=== PATIENT | female | born 1935 | race Caucasian/White ===

== ENCOUNTER 2018-01-25 01:22 | Inpatient (IN) | payer OTHER, MEDICARE ==
[~2018-01-25] VITALS: Ht 149.9 cm; Wt 68.9 kg
[~2018-01-25 01:22] MED LIST: AMLODIPINE BESY10 M1 PO; ATORVASTATIN CA40 M1 PO; CYANOCOBAL1000 MCG/2 IM; ESTRACE42.5 GM VG; HYDROCHLOROTH12.5 M2 PO; LABETALOL HCL200 M1 PO; LEVOTHYROXINE125 MCG PO; LYRICA75 M1 PO; MYRBETRIQ50 M1 PO; PANTOPRAZOLE SO20 M1 PO; PLAVIX75 M1 PO
--- NOTE | 2018-01-25 12:28 | RADIOLOGY REPORT ---
EXAMINATION: XR HIP, RIGHT CLINICAL INFORMATION: Status post total right hip arthroplasty COMPARISON: None TECHNIQUE: Two views of the right hip. FINDINGS: Prosthetic components of the right total hip arthroplasty are appropriately aligned. No periprosthetic fracture. Gas from recent surgery is present in the surrounding soft tissues. IMPRESSION: Normal postoperative appearance of the right total hip prosthesis.
--- NOTE | 2018-01-25 13:18 | PN- Orthopedic ---
Subjective Subjective: POC Pt recovering in PACU, minimal discomfort in right hip. Denies paresthesias. Deneis CP/SOB/COREY. Objective Vital Signs and I&Os VSS, afebrile Physical Exam: gen- NAD resp- clear cardiac- RRR ext- right thigh is soft, no erythema. dressing clean and dry. no calf tenderness. 2+DP pulse. distal sensory and motor function intact Current Medications: Current Medications Sig/Man Start time Last Medication Dose Route Stop Time Status Admin Acetaminophen 0 .STK-MED ONE 01/25 837 DC PO Acetaminophen 975 MG ONCE 01/25 0000 NR PO 01/25 235 Cefazolin Sodium 2,000 MG ONCE 01/25 0000 NR IV 01/25 235 Midazolam HCl 0 .STK-MED ONE 01/25 0914 DC .ROUTE Oxycodone HCl 0 .STK-MED ONE 01/25 837 DC PO Oxycodone HCl 10 MG ONCE 01/25 0000 NR PO 01/25 2359 Tranexamic Acid 0 .STK-MED ONE 01/25 0914 DC IV Assessment/Plan Assessment/Plan 82yo F with hx of htn, hld, cad, depression and gerd now here SP R ZAKIA POD0, stable in PACU pain management, try to limit narcotics dvt ppx- asa 81mg BID for three weeks regular home meds- Restart PLavix in 1 week PT- WBAT w RW reg diet IVF overngiht FU AM labs DC planning- possibly home tomorrow pending PT eval Core Measures Venous Thromboembolism VTE Risk Factors Surgery No Mechanical VTE Prophylaxis d/t N/A MechProphylax Ordered No VTE Pharm Prophylaxis d/t NA PharmProphylax ordered
--- NOTE | 2018-01-25 13:19 | Admission Core Measures ---
Acute Coronary Syndrome (CM) ACS Core Measures Acute Coronary Syndrome Diagnosis No Congestive Heart Failure (NEW) CHF Core Measures Congestive Heart Failure Diagnosis No Cerebrovascular Accident CVA Core Measures CVA/TIA Diagnosis No Venous Thromboembolism VTE Core Monet (View Protocol) VTE Risk Factors Surgery No Mechanical VTE Prophylaxis d/t N/A MechProphylax Ordered No VTE Pharm Prophylaxis d/t NA PharmProphylax ordered Problem List As ranked by this Provider includes Assessment & Plan 1. Unilateral primary osteoarthritis, right hip HOME MEDS Home Med List Amlodipine Besylate 10 MG TABLET 1 TAB PO DAILY HTN (Reported) Atorvastatin Calcium 40 MG TABLET 1 TAB PO DAILY CHOLESTEROL (Reported) Clopidogrel Bisulfate (Plavix) 75 MG TABLET 1 TAB PO DAILY CAROTID ARTERY STENOSIS (Reported) Cyanocobalamin (Vitamin B-12) (Cyanocobalamin Injection) 1,000 MCG/ML VIAL 1 ML IM Q30D SUPPLEMENT (Reported) Estradiol (Estrace) 0.01 % CREAM.APPL 1 GM VG 2XW HRT (Reported) Hydrochlorothiazide 12.5 MG TABLET 1 TAB PO DAILY HTN (Reported) Labetalol HCl 200 MG TABLET 1 TAB PO BID CARDIAC (Reported) Levothyroxine Sodium 125 MCG TABLET 1 TAB PO DAILY REPLACEMENT (Reported) Mirabegron (Myrbetriq) 50 MG TAB.ER.24H 1 TAB PO DAILY OAB (Reported) Pantoprazole Sodium 20 MG TABLET.DR 1 TAB PO DAILY GERD (Reported) Pregabalin (Lyrica) 75 MG CAPSULE 1 CAP PO BID DEPRESSION (Reported)
[2018-01-25] MEDS ORDERED: ASPIRIN EC81 M1 PO (13:24)
[2018-01-25] MEDS ORDERED: MIRALAX17 G1 PO (13:24)
[2018-01-25] MEDS ORDERED: DILAUDID2 M1 PO (13:24)
[2018-01-25] MEDS ORDERED: COLACE100 M1 PO (13:24)
--- NOTE | 2018-01-25 13:27 | Patient Discharge Instructions ---
Discharge Instructions General Discharge Information You were seen/treated for: Right hip pain related to unilateral primary osteoarthritis You had these procedures: Right total hip replacement Watch for these problems: Increasing pain despite the use of pain medication Increasing redness, warmth or swelling Drainage of any type from incision Inability to bear weight on operative leg Persistent nausea and vomiting Fever greater than 101.5 degrees Do not soak the wound: Yes No bath, but you may shower: Yes Other wound care: Please keep wound clean and dry. No ointments or lotions of any type on or near incision at any time. No exceptions. Your dressing will be changed by your nurse on the second day after your surgery. Daily dry dressing changes are recommended each day thereafter. Do not soak your wound in a bath or pool at any time until otherwise indicated by your surgeon. You may shower, please dry wound immediately after shower with a clean towel. Special Instructions: Aspirin: You are taking this medication to help prevent blood clot formation. Please take with food to protect your stomach lining. Please take as directed. Please take for three weeks Plavix: Dr. Vanegas would like you to discontinue plavix for 7 days, then resume your normal dosage. Constipation: Pain medication can cause constipation. Your surgeon has recommended that you take Colace and miralax each day. You may discontinue this medication if you develop loose stool or diarrhea. If you wish to continue this medication, it is available over the counter. If you are unable to move your bowels after several days, if you are unable to pass gas and are developing bloating, nausea, or vomiting as a result, please contact your doctor. Diet Continue normal diet: Yes Recommended Diet: Regular Activity Full Activity/No Limits: No Activity Self Limited: Yes Pounds, do NOT lift more than: 10 Acute Coronary Syndrome Inclusion Criteria At DC or during hospital stay patient has or had the following: ACS DIAGNOSIS No Discharge Core Measures Meds if any: Prescribed or Continued at Discharge Meds if any: NOT Prescribed or Continued at Discharge Congestive Heart Failure Inclusion Criteria At DC or during hospital stay patient has or had the following: CHF DIAGNOSIS No Discharge Core Measures Meds if any: Prescribed or Continued at Discharge Meds if any: NOT Prescribed or Continued at Discharge Cerebrovascular accident Inclusion Criteria At DC or during hospital stay patient has or had the following: CVA/TIA Diagnosis No Discharge Core Measures Meds if any: Prescribed or Continued at Discharge Meds if any: NOT Prescribed or Continued at Discharge Venous thromboembolism Inclusion Criteria VTE Diagnosis No VTE Type NONE VTE Confirmed by (Test) NONE Discharge Core Measures - Per Current guidelines, there needs to be overlap - treatment for the first 5 days of Warfarin therapy. - If discharged on Warfarin prior to 5 days of - overlap therapy, the patient will need to be - assessed for post discharge needs including - *Post discharge parental anticoagulation - *Warfarin and/or parental anticoagulation education - *Follow up date to check INR post discharge At least 5 days overlap therapy as Inpatient No Meds if any: Prescribed or Continued at Discharge Note: Overlap Therapy is Warfarin and Anticoagulant Meds if any: NOT Prescribed or Continued at Discharge
--- NOTE | 2018-01-25 13:30 | Surgical Discharge Summary ---
Visit Information Visit Dates Admission Date: 01/25/18 History of Present Illness Chief Complaint: Right hip pain related to unilateral primary osteoarthritis Medical History Isolation History: Standard Surgical History Pertinent Surgical History: non-contributory Review of Systems: See H&P Hospital Course Course Attending Physician: Newton Vanegas MD Primary Care Physician: Charley Grossman MD Hospital Course: Patient was admitted to the hospital for an elective total joint replacement. The procedure was tolerated well and patient was transferred to a general surgical floor. Diet was advanced and tolerated. The patient was evaluated and treated by physical therapy. At the time of hospital discharge, the vital signs were stable, neurovascular status was intact, and pain was controlled with the use of oral pain medications. Allergies: Coded Allergies: ALAYNA Inhibitors (UNKNOWN 01/22/18) PER PRE-OP ORDER SHEET FROM [facility]. - 01/22/18 STATINS (UNKNOWN 01/22/18) PER PRE-OP ORDER SHEET FROM [facility]. - 01/22/18 aspirin (UNKNOWN 01/22/18) PER PRE-OP ORDER SHEET FROM [facility]. - 01/22/18 Disposition Summary Disposition Principal Diagnosis: Right hip unilateral primary osteoarthritis Additional Diagnosis: None Discharge Disposition: home health services Discharge Instructions General Discharge Information Code Status: Full Code Patient's Diet: Regular, advance as tolerated Patient's Activity: WBAT Follow-Up Instructions/Appts: Follow up with Dr. Vanegas in 6 weeks from date of surgery. Please call office to arrange &/or confirm this appointment. Medications at Discharge Discharge Medications: Stop taking the following medications: Clopidogrel Bisulfate (Plavix) 75 MG TABLET ORAL DAILY Continue taking these medications: Levothyroxine Sodium (Levothyroxine Sodium) 125 MCG TABLET 1 Tablet ORAL DAILY Pantoprazole Sodium (Pantoprazole Sodium) 20 MG TABLET.DR 1 Tablet ORAL DAILY Mirabegron (Myrbetriq) 50 MG TAB.ER.24H 1 Tablet ORAL DAILY Labetalol HCl (Labetalol HCl) 200 MG TABLET 1 Tablet ORAL TWICE DAILY Pregabalin (Lyrica) 75 MG CAPSULE 1 Capsule ORAL TWICE DAILY Hydrochlorothiazide (Hydrochlorothiazide) 12.5 MG TABLET 1 Tablet ORAL DAILY Amlodipine Besylate (Amlodipine Besylate) 10 MG TABLET 1 Tablet ORAL DAILY Atorvastatin Calcium (Atorvastatin Calcium) 40 MG TABLET 1 Tablet ORAL DAILY Estradiol (Estrace) 0.01 % CREAM.APPL 1 Gram VAGINAL 2 times per week Cyanocobalamin (Vitamin B-12) (Cyanocobalamin Injection) 1,000 MCG/ML VIAL 1 Milliliters INTRAMUSC ONCE A MONTH Start taking the following new medications: Aspirin (Ecotrin*) 81 MG TABLET.DR 1 Tablet ORAL TWICE DAILY Qty = 42 No Refills Instructions: DISCONTINUE AFTER 3 WEEKS, TAKE WITH FOOD Docusate Sodium (Colace) 100 MG CAPSULE 1 Capsule ORAL TWICE DAILY Qty = 14 No Refills Instructions: DISCONTINUE USE IF YOU DEVELOP LOOSE STOOL OR DIARRHEA Polyethylene Glycol 3350 (Miralax) 17 GRAM POWD.PACK 1 Packet ORAL DAILY Qty = 7 No Refills Instructions: dissolve in water, DISCONTINUE USE IF YOU DEVELOP LOOSE STOOL OR DIARRHEA Hydromorphone HCl (Dilaudid) 2 MG TABLET 1-2 Tablet ORAL EVERY 4-6 HOURS NEEDED as needed for PAIN Qty = 36 No Refills
[2018-01-25 16:17] VITALS: BP 114/68
--- NOTE | 2018-01-25 17:59 | Operative Report ---
Operative/Inv Procedure Report Surgery Date: 01/25/18 Name of Procedure: Right total hip replacement Pre-Operative Diagnosis: Primary right hip DJD Post-Operative Diagnosis: Same Estimated Blood Loss: 300 Surgeon/Ignition Mechanic: Guilherme ELLER,Newton Brenner Anesthesia: block Operative/Procedure Note Note: Description of Procedure: The patient was taken to the operating room and positively identified. After induction of spinal anesthesia and administration of appropriate pre-operative antibiotics, the patient was positioned supine on the operating room table and all bony prominences were well padded. After performing a surgical timeout, the right lower extremity was prepped and draped in the usual sterile fashion. A direct anterior approach was made to the right hip. The incision was carried sharply through superficial soft tissues to the level of the fascia. Meticulous hemostasis was maintained with Bovie electocautery. The fascia over the tensor fascia judy muscle was opened sharply and the interval between the TFL and the sartorius was entered bluntly taking care to stay lateral to the lateral femoral cutaneous nerve. Retractors were placed around the femoral neck and the pericapsular fat was identified. The ascending branches of the lateral femoral circumflex vessels were identified and carefully coagulated. The pericapsular fat and anterior capsule were then resected. A napkin ring osteotomy was performed and the femoral head was removed without difficulty. Attention was then turned to the acetabulum. After appropriate placement of retractors, the acetabulum was exposed. Soft tissue was cleaned from the acetabular margin and notch. Overhanging osteophytes were removed and the teardrop was exposed. The acetabulum was then sequentially reamed to accept a 52 mm Anastasia Tritanium hemispherical solid shell. This was impacted into place in the appropriate position and fitted with a 32 mm Trident X3 zero degree polyethylene insert. Attention was then turned to the femur. After performing the appropriate ligament releases, the proximal femur was exposed. It was then sequentially broached to accept a size #2 Cummings Accolade 2 stem. This was trialed for leg length and stability. The trial component was removed and the final component was impacted into place. The trunnion was carefully cleaned and fit with a 32 mm, +4 Biolox delta ceramic femoral head. The hip was reduced and put through a full range of motion and found to be stable. The articular space was then irrigated with sterile saline. The periarticular soft tissues were infilitrated with Marcaine. The fascial layer was closed with interrupted #1 vicryl suture and the skin was re-approximated with interrupted 2 -0 vicryl. The skin was closed with a running 3-0 V-Lock suture. Steri-strips and a sterile dressing were applied. The patient was awakened and taken to the recovery room in satisfactory condition.
[2018-01-25 18:26] VITALS: BP 140/80
[2018-01-25 19:45] VITALS: BP 126/70
[2018-01-25 22:00] VITALS: BP 130/68
[2018-01-26 02:23] VITALS: BP 148/62
[2018-01-26 04:03] VITALS: BP 144/62
--- NOTE | 2018-01-26 07:17 | PN- Orthopedic ---
Subjective Subjective: Patient feeling well. Episode of confusion last night and is currently resolved. She feels well otherwise. Pain is controlled. She is voiding. She has been ambulatory. No fever no flulike illness. Objective Vital Signs and I&Os Vital Signs Date Time Temp Pulse Resp B/P B/P Pulse O2 O2 Flow FiO2 Mean Ox Delivery Rate 01/26 0403 98.2 71 20 144/62 93 01/26 0223 97.5 72 20 148/62 94 01/25 2200 97.9 68 18 130/68 95 01/25 1945 98.0 70 18 126/70 94 Room Air 01/25 1944 70 126/70 01/25 1826 98.7 67 18 140/80 93 Room Air 01/25 1617 97.6 65 18 114/68 95 Room Air Intake & Output 01/26 0801/26 0000 01/25 1600 01/25 0801/25 0000 01/24 1600 Intake Total 6440 1125 Output Total 350 800 Balance 6090 325 Intake, IV 6200 525 Intake, Oral 240 600 Output, Urine 350 800 Patient 152 lb 152 lb Weight Physical Exam: Well-developed well-nourished no apparent distress. HEENT: Atraumatic, extraocular motion intact Neck: Supple, no lymphadenopathy Respiratory: No respiratory distress Extremities: No edema RIGHT lower extremity hip dressing in place, Dressing clean dry and intact Mild tenderness about the right hip. Mild thigh swelling No signs of infection. No shortening or rotation Hip range of motion is limited and without unexpected pain Neurovascularly intact distally Bilateral calves are supple, nontender. Neuro: Alert and oriented x3 Psych: Mood affect normal, normal memory normal judgment. Skin: Warm and dry, no rash on exposed skin Assessment/Plan Assessment/Plan 82yo F with hx of htn, hld, cad, depression and gerd now here SP R ZAKIA, ANTERIOR APPROACH POD1 pain management, try to limit narcotics Postoperative confusion resolved dvt ppx- asa 81mg BID for three weeks regular home meds- Restart PLavix in 1 week PT- WBAT DC IV fluids Perioperative antibiotics FU AM labs DC planning-possible home today with [facility] services, awaiting PT eval and a.m. labs Core Measures Venous Thromboembolism VTE Risk Factors Surgery No Mechanical VTE Prophylaxis d/t N/A MechProphylax Ordered No VTE Pharm Prophylaxis d/t NA PharmProphylax ordered
[2018-01-26 10:55] VITALS: BP 110/58
[2018-01-26 12:48] LABS: ABSOLUTE BASOPHIL COUNT 0 /CUMM (0.0-0.2); ABSOLUTE EOSINOPHIL COUNT 0 /CUMM (0.0-0.7); ABSOLUTE GRANULOCYTE CT 6.6 /CUMM (1.4-6.5); ABSOLUTE LYMPH COUNT 0.6 /CUMM (1.2-3.4); ABSOLUTE MONOCYTE COUNT 0.7 /CUMM (0.10-0.60); BASOPHIL % 0.2 % (0.0-2.0); EOSINOPHIL % 0.5 % (0-5); GRANULOCYTE % 83.5 % (42.2-75.2); HEMATOCRIT 33.3 % (37-47); MEAN CORPUSCULAR HGB 30.7 PG (27.0-31.0); MEAN CORPUSCULAR HGB CONC 33.8 G/DL (33.0-37.0); MEAN CORPUSCULAR VOLUME 90.8 FL (81.0-99.0); MEAN PLATELET VOLUME 9.1 FL (7.4-10.4); PLATELET COUNT 242 /CUMM (130-400); RBC DISTRIBUTION WIDTH 13.5 % (11.5-14.5); RED BLOOD CELL CT 3.67 /CUMM (4.20-5.40); WHITE BLOOD CELL COUNT 7.9 /CUMM (4.8-10.8)
== END 2018-01-26 19:05 | disposition home health service (06) | DRG 470 ==
LOC: SDA 01:22 → ENRESERV 12:29 → ENTRNSPT 14:33 → EDTRNSPTSTS 15:15 → EDTRNSPT 15:15 → 2NA 15:47 → CMPTRNSPT 15:57 → ENTRNSPT 01-26 18:55 → 2NA 01-26 19:05 → EDTRNSPT 01-26 19:12 → CMPTRNSPT 01-26 19:13
PROVIDERS: Nurse Practitioner
PROC: 0SR904A Replacement of Right Hip Joint with Ceramic on Polyethylene Synthetic Substitute, Uncemented, Open Approach (ICD-10-PCS; principal; 2018-01-25)
DX: M16.11 Unilateral primary osteoarthritis, right hip (principal); I10 Essential (primary) hypertension; E78.5 Hyperlipidemia, unspecified; E03.9 Hypothyroidism, unspecified; F03.90 Unspecified dementia, unspecified severity, without behavioral disturbance, psychotic disturbance, mood disturbance, and anxiety; K21.9 Gastro-esophageal reflux disease without esophagitis; Z88.6 Allergy status to analgesic agent; Z88.8 Allergy status to other drugs, medicaments and biological substances; Z79.02 Long term (current) use of antithrombotics/antiplatelets; N32.81 Overactive bladder; E53.8 Deficiency of other specified B group vitamins; M48.00 Spinal stenosis, site unspecified; I25.10 Atherosclerotic heart disease of native coronary artery without angina pectoris
CPT/HCPCS: 2NASP; 36415; 73502-RT; 82436; 97110-GO; 97116-GO; 97161-GP; 97530-GO; J0131; J0690; J0735; J2550; J7042